=== PATIENT | female | born 1960 | race Caucasian/White ===

== ENCOUNTER → 2018-10-13 | Outpatient (CLI) | payer MEDICARE ==
--- NOTE | 2018-10-13 16:43 | REP ---
HISTORY: Bilateral knee pain. COMPARISON: None. RIGHT KNEE Five views of the right knee show mild medial compartmental narrowing and minimal tricompartmental marginal osteophytosis. There is asymmetric patellofemoral joint space narrowing. There is no fracture. IMPRESSION: Chronic changes as described above. LEFT KNEE Five views of the left knee show medial compartmental narrowing and tricompartmental marginal osteophytosis particularly affecting the medial compartment. There is patellofemoral joint space narrowing which is asymmetric. There is no fracture. IMPRESSION: Chronic changes as described above. Electronically Signed by Andrea Bernard DO 10/13/2018 05:05 P
== END ==
LOC: M LRY 15:16
PROVIDERS: ATTEND Nurse Practitioner Adult Health
DX: M25.561 Pain in right knee (principal); M25.461 Effusion, right knee; M25.761 Osteophyte, right knee; M25.762 Osteophyte, left knee